=== PATIENT | male | born 1995 | race Caucasian/White ===

== ENCOUNTER 2021-06-14 18:51 | Observation (INO) | payer OTHER ==
[2021-06-14 21:48] LABS: BASO % 0.8 % (0-2.0); EOS % 4.1 % (0-4.5); HEMOGLOBIN 14.1 GM/dL (11.7-16.9); LYMPH % 35.7 % (8-40); MCH 29.4 pg (25.7-33.7); MCHC 32.9 g/dl (32.0-35.9); MEAN CELL VOLUME 89.4 fl (80-96); MEAN PLT VOLUME 8.7 fl (7.5-11.1); MONO % 9.3 % (3.8-10.2); NEUT % 50.1 % (42.8-82.8); PLATELET COUNT 333 10^3/uL (134-434); RBC 4.81 M/mm3 (4.00-5.60); RDW 13.6 % (11.9-15.9); WHITE BLOOD COUNT 7.9 K/mm3 (4.0-10.0)
[2021-06-14 22:18] LABS: CHLORIDE 107 mmol/L (98-107); SODIUM 140 mmol/L (136-145)
[2021-06-14 22:20] LABS: ALBUMIN 4.1 g/dl (3.4-5.0); ANION GAP 5 MMOL/L (8-16); BLOOD UREA NITROGEN 16.7 mg/dL (7-18); CALCIUM 8.5 mg/dL (8.5-10.1); CO2 28 mmol/L (21-32); GLUCOSE,RANDOM 76 mg/dL (74-106)
[2021-06-14 22:23] LABS: CREATININE 1.1 mg/dL (0.55-1.3); SGOT/AST 25 U/L (15-37); SGPT/ALT 33 U/L (13-61)
[2021-06-14 22:25] LABS: BILIRUBIN,TOTAL 0.2 mg/dL (0.2-1)
[2021-06-14 22:26] LABS: ALK PHOS 63 U/L (45-117)
[2021-06-14 22:51] LABS: TOT PROT 7.8 g/dl (6.4-8.2)
[2021-06-15 00:57] LABS: PH,URINE >= 9.0 (5.0-8.0); URINE APPEARANCE TURBID; URINE BILIRUBIN NEGATIVE (NEGATIVE); URINE COLOR YELLOW; URINE GLUCOSE (UA) NEGATIVE (NEGATIVE); URINE KETONE TRACE (NEGATIVE); URINE LEUK ESTERASE NEGATIVE (NEGATIVE); URINE NITRITE NEGATIVE (NEGATIVE); URINE PROTEIN NEGATIVE (NEGATIVE); URINE UROBILINOGEN 0.2 mg/dL (0.2-1.0)
[2021-06-15 01:00] LABS: PHENCYCLIDINE,URINE NEGATIVE (NEGATIVE); URINE BARBITURATES NEGATIVE (NEGATIVE); URINE BENZODIAZEPINES NEGATIVE (NEGATIVE)
[2021-06-15 01:01] LABS: COCAINE, UR NEGATIVE (NEGATIVE); OPIATES, URI NEGATIVE (NEGATIVE)
[2021-06-15 01:08] LABS: METHADONE, UR NEGATIVE (NEGATIVE); URINE AMPHETAMINES NEGATIVE (NEGATIVE)
[2021-06-15 03:56] VITALS: BMI 33.2
[2021-06-15] MEDS: busPIRone HCL 10 MG TABLET (FP) PO SCH ×3 (06:56→22:02)
[2021-06-15] MEDS ORDERED: ESCITALOPRAM OXALATE 10 MG TABLET ONE (09:55)
[2021-06-15] MEDS: DIVALPROEX SODIUM 500 MG TABLET E.C. PO SCH ×2 (09:58→22:02)
[2021-06-15] MEDS: ESCITALOPRAM OXALATE 20 MG TABLET PO SCH (09:58)
[2021-06-15] MEDS: ENOXAPARIN NA (PORCINE) 40 MG/0.4 ML DISP.SYRIN SQ SCH (09:58)
[2021-06-16] MEDS: busPIRone HCL 10 MG TABLET (FP) PO SCH ×3 (06:05→21:15)
[2021-06-16 07:57] LABS: BASO % 0.7 % (0-2.0); EOS % 4.6 % (0-4.5); HEMATOCRIT 42.4 % (35.4-49); HEMOGLOBIN 13.8 GM/dL (11.7-16.9); LYMPH % 43.5 % (8-40); MCH 29.2 pg (25.7-33.7); MCHC 32.4 g/dl (32.0-35.9); MEAN PLT VOLUME 8.6 fl (7.5-11.1); MONO % 9.3 % (3.8-10.2); NEUT % 41.9 % (42.8-82.8); PLATELET COUNT 304 10^3/uL (134-434); RBC 4.72 M/mm3 (4.00-5.60); RDW 13.1 % (11.9-15.9); WHITE BLOOD COUNT 5.6 K/mm3 (4.0-10.0)
[2021-06-16 08:41] LABS: BILIRUBIN,TOTAL 0.3 mg/dL (0.2-1)
[2021-06-16 08:44] LABS: ALBUMIN 3.4 g/dl (3.4-5.0); BLOOD UREA NITROGEN 12.4 mg/dL (7-18); CREATININE 0.9 mg/dL (0.55-1.3); TOT PROT 6.8 g/dl (6.4-8.2)
[2021-06-16 08:45] LABS: MAGNESIUM 2.3 mg/dL (1.8-2.4)
[2021-06-16 08:46] LABS: CALCIUM 8.4 mg/dL (8.5-10.1)
[2021-06-16] MEDS ORDERED: ESCITALOPRAM OXALATE 10 MG TABLET ONE (09:51)
[2021-06-16] MEDS: ENOXAPARIN NA (PORCINE) 40 MG/0.4 ML DISP.SYRIN SQ SCH (09:53)
[2021-06-16] MEDS: ESCITALOPRAM OXALATE 20 MG TABLET PO SCH (09:54)
[2021-06-16] MEDS: DIVALPROEX SODIUM 500 MG TABLET E.C. PO SCH ×2 (09:54→21:14)
[2021-06-17] MEDS: busPIRone HCL 10 MG TABLET (FP) PO SCH ×2 (06:27→13:49)
[2021-06-17] MEDS ORDERED: ESCITALOPRAM OXALATE 10 MG TABLET ONE (09:00)
[2021-06-17] MEDS: ENOXAPARIN NA (PORCINE) 40 MG/0.4 ML DISP.SYRIN SQ SCH (09:11)
[2021-06-17] MEDS: ESCITALOPRAM OXALATE 20 MG TABLET PO SCH (09:11)
[2021-06-17] MEDS: DIVALPROEX SODIUM 500 MG TABLET E.C. PO SCH (09:15)
[2021-06-17 18:12] VITALS: BP 125/68; PULSE 71; TEMP 98
== END 2021-06-17 18:33 | disposition short-term general hospital (02) ==
LOC: JER 18:51 → JERBED 21:45 → J6S 06-15 01:02
PROVIDERS: ADMIT Internal Medicine; ATTEND Internal Medicine
PROC: 3E023GC Introduction of Other Therapeutic Substance into Muscle, Percutaneous Approach (ICD-10-PCS; principal; 2021-06-14)
DX: R45.851 Suicidal ideations (principal); F31.9 Bipolar disorder, unspecified; F41.8 Other specified anxiety disorders; F66 Other sexual disorders; R44.0 Auditory hallucinations
CPT/HCPCS: 36415; 71045-TC-FY; 80053; 80164; 80307; 81003; 82550; 82553; 83735; 84100; 84439; 84443; 85025; 87086; 93005; 93010; 96372; 99285-25; C9803; G0378; U0003; U0005

== ENCOUNTER 2021-08-07 03:44 | Day surgery (SDC) | payer OTHER ==
[2021-08-07 04:02] VITALS: BMI 28.1
[2021-08-07] MEDS ORDERED: ONDANSETRON 4 MG/2 ML VIAL IVPUSH ONE (04:14)
[2021-08-07] MEDS ORDERED: SODIUM CHLORIDE 0.9% 500 ML INFUS.BAG IV ONE (04:14)
[2021-08-07] MEDS ORDERED: FAMOTIDINE 20 MG/50 ML IVPB 20 MG/50 ML MG IVPB ONE ×2 (04:14→04:26)
[2021-08-07] MEDS ORDERED: ONDANSETRON 4 MG/2 ML VIAL ONE (04:27)
[2021-08-07 04:34] LABS: BASO % 0.5 % (0-2.0); EOS % 4.3 % (0-4.5); HEMATOCRIT 41.5 % (35.4-49); HEMOGLOBIN 14.2 GM/dL (11.7-16.9); LYMPH % 19.2 % (8-40); MCHC 34.1 g/dl (32.0-35.9); MEAN CELL VOLUME 87.8 fl (80-96); MONO % 11.4 % (3.8-10.2); NEUT % 64.6 % (42.8-82.8); PLATELET COUNT 266 10^3/uL (134-434); RBC 4.72 M/mm3 (4.00-5.60); RDW 13.7 % (11.9-15.9)
[2021-08-07 04:53] LABS: ALBUMIN 3.8 g/dl (3.4-5.0); CALCIUM 9.4 mg/dL (8.5-10.1)
[2021-08-07 04:54] LABS: BLOOD UREA NITROGEN 14.7 mg/dL (7-18)
[2021-08-07 04:58] LABS: BILIRUBIN,TOTAL 0.2 mg/dL (0.2-1); TOT PROT 7.4 g/dl (6.4-8.2)
[2021-08-07] MEDS ORDERED: morphine CARPU-JECT 4 MG/1 ML DISP.SYRIN IVPUSH ONE ×2 (05:37→09:55)
[2021-08-07] MEDS ORDERED: morphine SULFATE 4 MG/ML VIAL ONE ×2 (05:40→10:00)
[2021-08-07] MEDS ORDERED: LIDOCAINE VISCOUS 2% ORAL/TOP 15 ML UNIT-DOSE CUP MM ONE (07:59)
[2021-08-07] MEDS ORDERED: MAG HYDROX/AL HYDROX/SIMETH 30 ML UNIT-DOSE CUP PO ONE (07:59)
[2021-08-07] MEDS ORDERED: LIDOCAINE VISCOUS 2% ORAL/TOP 15 ML UNIT-DOSE CUP ONE (08:05)
[2021-08-07] MEDS ORDERED: MAG HYDROX/AL HYDROX/SIMETH 30 ML UNIT-DOSE CUP ONE (08:05)
[2021-08-07] MEDS ORDERED: SUCRALFATE 1 GM TABLET (FP) ONE (08:05)
[2021-08-07] MEDS: SUCRALFATE 1 GM/10 ML UNIT DOSE CUPS PO SCH ×2 (09:58→17:28)
[2021-08-07] MEDS ORDERED: VANCOMYCIN 1 GM in D5W (PRE-DOCKED) 1,000 MG/250 ML IVPB ONE (09:58)
[2021-08-07] MEDS ORDERED: PIPERACILLIN/TAZOB 4.5 GM 4.5 GM in DEXTROSE 5%-WATER 100 ML IVPB ONE (09:58)
[2021-08-07] MEDS ORDERED: PIPERACILLIN/TAZOB 4.5 GM 4.5 GM/100 ML BAG IVPB ONE (10:12)
[2021-08-07] MEDS ORDERED: VANCOMYCIN 1 GRAM (PRE-DOCKED) 1,000 MG/250 ML BAG IVPB ONE (10:13)
[2021-08-07] MEDS ORDERED: ONDANSETRON 4 MG/2 ML VIAL IVPUSH PRN (11:08)
[2021-08-07] MEDS ORDERED: D5-1/2NS+20 MEQ KCL - 20 MEQ/1,000 ML INFUS.BAG IV SCH ×2 (11:15→16:55)
[2021-08-07] MEDS: ACETAMINOPHEN 1000 MG/100 ML BAG IVPB PRN ×2 (14:55→22:09)
[2021-08-07] MEDS: KETOROLAC TROMETHAMINE 30 MG/1 ML VIAL IVPUSH SCH (17:01)
[2021-08-07] MEDS: DEXTROSE 5%-0.45% SALINE 1,000 ML IV SCH (17:59)
[2021-08-07] MEDS: busPIRone HCL 10 MG TABLET (FP) PO SCH (22:10)
[2021-08-07] MEDS: DIVALPROEX SODIUM 500 MG TABLET E.C. PO SCH (22:11)
[2021-08-08] MEDS: KETOROLAC TROMETHAMINE 30 MG/1 ML VIAL IVPUSH SCH ×3 (01:33→17:56)
[2021-08-08] MEDS: ACETAMINOPHEN 1000 MG/100 ML BAG IVPB PRN (05:48)
[2021-08-08] MEDS: SUCRALFATE 1 GM/10 ML UNIT DOSE CUPS PO SCH ×2 (06:07→19:11)
[2021-08-08 08:34] LABS: BASO % 0.4 % (0-2.0); EOS % 2.3 % (0-4.5); HEMATOCRIT 42.5 % (35.4-49); HEMOGLOBIN 14.1 GM/dL (11.7-16.9); MCH 29.7 pg (25.7-33.7); MCHC 33.2 g/dl (32.0-35.9); MEAN CELL VOLUME 89.5 fl (80-96); MEAN PLT VOLUME 8.7 fl (7.5-11.1); MONO % 18.3 % (3.8-10.2); PLATELET COUNT 274 10^3/uL (134-434); RBC 4.75 M/mm3 (4.00-5.60); RDW 14.1 % (11.9-15.9); WHITE BLOOD COUNT 8.2 K/mm3 (4.0-10.0)
[2021-08-08 08:45] LABS: CALCIUM 8.4 mg/dL (8.5-10.1)
[2021-08-08 08:46] LABS: ALBUMIN 3.4 g/dl (3.4-5.0); BLOOD UREA NITROGEN 5.8 mg/dL (7-18)
[2021-08-08 08:49] LABS: CREATININE 0.8 mg/dL (0.55-1.3)
[2021-08-08 08:50] LABS: TOT PROT 7.1 g/dl (6.4-8.2)
[2021-08-08 08:51] LABS: BILIRUBIN,TOTAL 0.3 mg/dL (0.2-1)
[2021-08-08] MEDS: DEXTROSE 5%-0.45% SALINE 1,000 ML IV SCH (09:20)
[2021-08-08] MEDS ORDERED: ESCITALOPRAM OXALATE 20 MG TABLET PO SCH (10:00)
[2021-08-08] MEDS: busPIRone HCL 10 MG TABLET (FP) PO SCH ×2 (10:23→21:22)
[2021-08-08] MEDS: DIVALPROEX SODIUM 500 MG TABLET E.C. PO SCH ×2 (10:23→21:22)
[2021-08-08] MEDS ORDERED: MIDAZOLAM HCL 2 MG/2 ML SINGLE DOSE VIAL ONE ×2 (13:04)
[2021-08-08] MEDS ORDERED: ROCURONIUM BROMIDE 50 MG/5 ML SYRINGE ONE (13:04)
[2021-08-08] MEDS ORDERED: PROPOFOL 20 ML ONE (13:04)
[2021-08-08] MEDS ORDERED: BUPIVACAINE HCL/PF 0.5% (5MG/ML) 10 ML VIAL ONE (13:38)
[2021-08-08] MEDS ORDERED: HYDROmorphone HCl 2 MG/ML VIAL ONE (13:58)
[2021-08-08] MEDS ORDERED: DEXAMETHASONE SOD PHOSPHATE 4 MG/1 ML VIAL ONE (13:59)
[2021-08-08] MEDS ORDERED: NEOSTIGMINE METHYLSULFATE 0.5 MG/ML - 10 ML MDV ONE (13:59)
[2021-08-08] MEDS ORDERED: KETOROLAC TROMETHAMINE 30 MG/1 ML VIAL ONE (13:59)
[2021-08-08] MEDS ORDERED: GLYCOPYRROLATE 0.2 MG/1 ML VIAL ONE (13:59)
[2021-08-08] MEDS ORDERED: BUPIVACAINE HCL/PF 0.5% (5MG/ML) 10 ML VIAL IJ ONE (14:50)
[2021-08-08] MEDS ORDERED: oxyCODONE HCL 5 MG TABLET PO PRN ×5 (15:26→15:47)
[2021-08-08] MEDS ORDERED: ONDANSETRON 4 MG/2 ML VIAL IVPUSH PRN ×2 (15:27→15:47)
[2021-08-08] MEDS ORDERED: ACETAMINOPHEN 1000 MG/100 ML BAG IVPB ONE (15:29)
[2021-08-08] MEDS ORDERED: LACTATED RINGERS SOLUTION 1,000 ML IV SCH (15:30)
[2021-08-08] MEDS ORDERED: DEXTROSE 5%-0.45% SALINE 1,000 ML IV SCH (15:47)
[2021-08-08] MEDS ORDERED: ACETAMINOPHEN INJECTION 100 ML IVPB ONE (15:50)
[2021-08-09] MEDS: KETOROLAC TROMETHAMINE 30 MG/1 ML VIAL IVPUSH SCH ×2 (01:07→09:16)
[2021-08-09] MEDS: SUCRALFATE 1 GM/10 ML UNIT DOSE CUPS PO SCH (06:10)
[2021-08-09 08:35] LABS: BASO % 0.3 % (0-2.0); EOS % 0.7 % (0-4.5); HEMATOCRIT 39.1 % (35.4-49); HEMOGLOBIN 13.1 GM/dL (11.7-16.9); LYMPH % 25.4 % (8-40); MCHC 33.5 g/dl (32.0-35.9); MEAN CELL VOLUME 89.7 fl (80-96); MEAN PLT VOLUME 8.2 fl (7.5-11.1); MONO % 15.4 % (3.8-10.2); NEUT % 58.2 % (42.8-82.8); PLATELET COUNT 273 10^3/uL (134-434); RBC 4.36 M/mm3 (4.00-5.60); WHITE BLOOD COUNT 8.9 K/mm3 (4.0-10.0)
[2021-08-09 08:53] LABS: CALCIUM 8.3 mg/dL (8.5-10.1)
[2021-08-09 08:56] LABS: CREATININE 0.9 mg/dL (0.55-1.3)
[2021-08-09 08:58] LABS: BILIRUBIN,TOTAL 0.3 mg/dL (0.2-1); TOT PROT 6.6 g/dl (6.4-8.2)
[2021-08-09 09:05] LABS: BLOOD UREA NITROGEN 11.6 mg/dL (7-18)
[2021-08-09 09:15] VITALS: BP 131/58; PULSE 71; TEMP 99.7
[2021-08-09] MEDS: DIVALPROEX SODIUM 500 MG TABLET E.C. PO SCH (09:16)
[2021-08-09] MEDS: busPIRone HCL 10 MG TABLET (FP) PO SCH (09:16)
[2021-08-09] MEDS ORDERED: ESCITALOPRAM OXALATE 20 MG TABLET PO SCH (10:00)
== END 2021-08-09 11:45 | disposition home or self-care (01) ==
LOC: JER 03:44 → UNDOADMIN 09:57 → JERBED 09:57 → JASUSAT 09:57 → J7W 14:31 → JERBED 14:31 → J7W 14:31 → JASUSAT 08-09 11:45
PROVIDERS: ATTEND Student in an Organized Health Care Education/Training Program
PROC: 0FT44ZZ Resection of Gallbladder, Percutaneous Endoscopic Approach (ICD-10-PCS; principal; 2021-08-07)
DX: K81.0 Acute cholecystitis (principal)
CPT/HCPCS: 36415; 76705-TC; 80053; 83690; 85025; 88304-TC; 93005; 93010; 94760; 99285-25; C9803-CS; U0003; U0005